=== PATIENT | male | born 1975 | race Caucasian/White ===

== ENCOUNTER 2022-12-25 07:56 | Outpatient (CLI) | payer OTHER, SELFPAY | END 2022-12-25 07:57 | disposition home or self-care (01) | PROVIDERS: PCP Family Medicine; Visit Provider Family Medicine | DX: E78.5 Hyperlipidemia, unspecified (principal); Z13.1 Encounter for screening for diabetes mellitus | CPT/HCPCS: 80048; 80061 ==

== ENCOUNTER 2024-02-25 09:03 | Outpatient (CLI) | payer OTHER, SELFPAY | END 2024-02-25 09:04 | disposition home or self-care (01) | PROVIDERS: PCP Family Medicine; Visit Provider Family Medicine | DX: E78.5 Hyperlipidemia, unspecified (principal); K76.0 Fatty (change of) liver, not elsewhere classified | CPT/HCPCS: 80053; 80061 ==